=== PATIENT | female | born 1940 ===

== ENCOUNTER 2017-07-13 15:19 | Inpatient (IN) | payer OTHER ==
[2017-07-13 20:48] VITALS: BMI 28.1
--- NOTE | 2017-07-13 21:41 | CP.PCM.HP ---
History of Present Illness - History of Present Illness History of Present Illness: PMD: Not on staff Chief complaint: Weakness/Unsteady gait The patient was seen and examined in the TCU HPI: This is a 76 years old female with hx of CHF, HTN, DM II. CAD s/p CABG and PPM transferred from the [facility] ([facility] to the [facility] for continued treatment and physical therapy. She was admitted to the [facility] ([facility]) on 07/10/17 after a fall in the street with trauma and pain to the whole back and legs and found to be Hypokalemic. CT of the head, neck, thoracic and lumbar spine all negative for fracture.At [facility] she complained of pain to the back and lower extremities with weakness and unstable gait and prone to fall without assistance. PMH: Back problems; CHF; HTN; HLD; Pneumonia; CAD; DM II PSH: Appendectomy; cholecystectomy; Permanent Pacemaker placement; CABG; Mitral/ Aortic valve replacement; Cataract removal right eye C Section X1 SH: No illegal drug use; No ETOH; never smoked; Live with family FH: State: no known family hx Allergies: ASA; PCN; EGG; Iodine; latex; Medication: reviewed Present on Admission - Present on Admission Any Indicators Present on Admission: No History of DVT/PE: No History of Uncontrolled Diabetes: No Urinary Catheter: No Decubitus Ulcer Present: No Review of Systems - Constitutional Constitutional: Headache, Weakness. absent: Anorexia, Chills, Fatigue, Fever - EENT Eyes: Requires Corrective Lenses. absent: Diplopia, Floaters, Loss of Peripheral Vision Ears: absent: Decreased Hearing, Ear Discharge, Ear Pain, Tinnitus Nose/Mouth/Throat: Epistaxis. absent: Nasal Congestion, Sinus Pressure - Cardiovascular Cardiovascular: absent: Chest Pain, Dyspnea, Leg Edema - Respiratory Respiratory: absent: Cough, Dyspnea, Wheezing - Gastrointestinal Gastrointestinal: Constipation. absent: Diarrhea, Nausea, Vomiting - Genitourinary Genitourinary: Urinary Frequency. absent: Dysuria, Flank Pain, Hematuria - Musculoskeletal Musculoskeletal: Back Pain, Muscle Weakness Additional comments: lower extremity weakness - Integumentary Integumentary: Pruritus, Rash. absent: Skin Pain, Skin Ulcer, Sores, Striae, Swelling - Neurological Neurological: Weakness. absent: Confusion, Dizziness, Headaches - Psychiatric Psychiatric: absent: Anxiety, Depression, Panic Attacks - Endocrine Endocrine: absent: Palpitations, Polydipsia, Polyphagia, Polyuria - Hematologic/Lymphatic Hematologic: absent: Easy Bleeding, Easy Bruising Past Patient History - Infectious Disease Hx of Infectious Diseases: None - Tetanus Immunizations Tetanus Immunization: Unknown - Past Medical History & Family History Past Medical History?: Yes - Past Social History Smoking Status: Never Smoked Chewing Tobacco Use: No Cigar Use: No Alcohol: None Drugs: Denies Home Situation {Lives}: With Family - CARDIAC Hx Hypercholesterolemia: Yes Hx Hypertension: Yes - PULMONARY Hx Pneumonia: Yes - NEUROLOGICAL Hx Neurological Disorder: No - HEENT Hx HEENT Problems: Yes Hx Cataracts: Yes (rt eye Sx 7yrs ago) - RENAL Hx Chronic Kidney Disease: No - ENDOCRINE/METABOLIC Hx Diabetes Mellitus Type 2: No - HEMATOLOGICAL/ONCOLOGICAL Hx Blood Disorders: No Hx Blood Transfusions: Yes Hx Blood Transfusion Reaction: No - INTEGUMENTARY Hx Dermatological Problems: No - MUSCULOSKELETAL/RHEUMATOLOGICAL Hx Falls: Yes - GASTROINTESTINAL Hx Gastrointestinal Disorders: Yes Hx Nausea: Yes Hx Vomiting: Yes Other/Comment: Hx poor appetite had PEG tube which was removed - GENITOURINARY/GYNECOLOGICAL Hx Genitourinary Disorders: No - PSYCHIATRIC Hx Psychophysiologic Disorder: No Hx Substance Use: No - SURGICAL HISTORY Hx Appendectomy: Yes (3 months ago) Hx Cholecystectomy: Yes - ANESTHESIA Hx Anesthesia: Yes Hx Anesthesia Reactions: Yes (DOES NOT TAKE EFFECT RIGHT AWAY) Hx Malignant Hyperthermia: No Meds Allergies/Adverse Reactions: Allergies Allergy/AdvReac Type Severity Reaction Status Date / Time aspirin Allergy SHORTNESS Verified 07/08/17 11:47 OF BREATH EGG Allergy SHORTNESS Verified 07/08/17 11:47 OF BREATH iodine Allergy SHORTNESS Verified 07/08/17 11:47 OF BREATH latex Allergy SHORTNESS Verified 07/08/17 11:47 OF BREATH Penicillins Allergy SHORTNESS Verified 07/08/17 11:47 OF BREATH Physical Exam - Constitutional Appears: No Acute Distress - Head Exam Head Exam: ATRAUMATIC, NORMAL INSPECTION, NORMOCEPHALIC - Eye Exam Eye Exam: EOMI, Normal appearance Pupil Exam: NORMAL ACCOMODATION, PERRL - ENT Exam ENT Exam: Mucous Membranes Moist, Normal Exam. absent: Normal External Ear Exam , Normal Oropharynx - Neck Exam Neck exam: Positive for: Full Rom, Normal Inspection. Negative for: Lymphadenopathy, Tenderness - Respiratory Exam Respiratory Exam: Clear to Auscultation Bilateral. absent: Rales, Rhonchi, Wheezes - Cardiovascular Exam Cardiovascular Exam: RRR, +S1, +S2. absent: Gallop Additional comments: III/ Systolic murmur at the base - GI/Abdominal Exam GI & Abdominal Exam: Normal Bowel Sounds, Soft. absent: Mass, Organomegaly, Tenderness - Rectal Exam Rectal Exam: Deferred - Extremities Exam Extremities exam: Positive for: normal inspection. Negative for: pedal edema Additional comments: Tenderness at both lower extremities on flexion - Back Exam Back exam: NORMAL INSPECTION. absent: CVA tenderness (L), CVA tenderness (R) - Neurological Exam Neurological exam: Alert, CN II-XII Intact, Oriented x3, Reflexes Normal - Psychiatric Exam Psychiatric exam: Normal Affect, Normal Mood - Skin Skin Exam: Dry, Intact, Normal Color, Rash, Warm Additional comments: Pruritic rash at both upper extremities and the chest Results - Labs Labs: PND Assessment & Plan - Assessment and Plan (Free Text) Assessment: #. Unsteady Gait #. Back pain #. Chronic CHF #. CAD #. DM II #. Hypokalemia resolved Plan: 76 years old female with hx of CHF, HTN, DM II. CAD s/p CABG and PPM transferred from the [facility] ([facility] to the [facility] for continued treatment and physical therapy. She was admitted to the [facility] ([facility] on 07/10/17 after a fall in the street with trauma and pain to the whole back and legs and found to be Hypokalemic. #. Unsteady Gait - Consult Belling Machine Operator Dr Mcallister - Physical therapy - occupational therapy - follow Electrolytes/renal labs #. Back pain - PT - Pain management #. Chronic CHF - Coreg/Lasix #. CAD - Crestor/ Plavix #. DM II - Glucophage - Regular Insulin sliding scale according to accucheck #. Hypokalemia resolved - follow electrolytes #. DVT prophylaxis with lovenox #. Code Status: Full - Date & Time Date: 07/13/17 Time: 21:41
[2017-07-13] MEDS ORDERED: Patient's Own Med (Rosuvastatin Calcium [Crestor] 10 MG) PO SCH (22:00)
[2017-07-13 22:04] VITALS: RESP 20
[2017-07-14] MEDS: Insulin Regular 100 units/ml SC SCH ×4 (07:07→23:00)
[2017-07-14 07:33] LABS: BASO # 0.1 K/uL (0.0-0.2); EOS # 0.3 K/uL (0.0-0.7); HEMOGLOBIN 10.8 g/dL (12.0-16.0); LYMPH # 2.1 K/uL (1.0-4.3); LYMPH % 23.7 % (20.0-40.0); MEAN CELL VOLUME 85.5 fl (81.0-99.0); MEAN CORPUSCULAR HEMOGLOBIN 28.8 pg (27.0-31.0); MEAN CORPUSCULAR HGB CONC 33.7 g/dL (33.0-37.0); MEAN PLATELET VOLUME 8.7 fl (7.2-11.7); MONO # 0.7 K/uL (0.0-0.8); MONO % 7.4 % (0.0-10.0); NEUT # 5.8 K/uL (1.8-7.0); NEUT % 64.9 % (50.0-75.0); NRBC % 0.1 % (0.0-0.0); RBC 3.75 Mil/uL (3.80-5.20); RED CELL DISTRIBUTION WIDTH 14.4 % (11.5-14.5); WHITE BLOOD COUNT 8.9 K/uL (4.8-10.8)
[2017-07-14 07:49] LABS: ALB/GLOB RATIO 1.1 (1.0-2.1); ALBUMIN 3.7 g/dL (3.5-5.0); ALT/SGPT 39 U/L (9-52); AST/SGOT 28 U/L (14-36); BLOOD UREA NITROGEN 17 mg/dl (7-17); CALCIUM 9.8 mg/dL (8.4-10.2); GFR AFRICAN-AMERICAN > 60; GFR NON-AFRICAN AMERICAN > 60
[2017-07-14 08:08] LABS: PROTHROMBIN TIME 11.6 Seconds (9.8-13.1)
[2017-07-14 08:09] LABS: PARTIAL THROMBOPLASTIN TIME 31.8 Seconds (25.6-37.1)
--- NOTE | 2017-07-14 08:59 | RAD ---
HISTORY: r/o Infiltrate COMPARISON: No prior. FINDINGS: LUNGS: No active pulmonary disease. PLEURA: No significant pleural effusion identified, no pneumothorax apparent. CARDIOVASCULAR: CABG. Permanent pacemaker. No congestive change. OSSEOUS STRUCTURES: No significant abnormalities. VISUALIZED UPPER ABDOMEN: Normal. OTHER FINDINGS: None. IMPRESSION: No active disease.
[2017-07-14] MEDS ORDERED: Patient's Own Med (Multivitamins [Hexavitamin] 1 TAB) PO SCH (09:00)
[2017-07-14] MEDS: Multivitamin With Minerals Tab PO SCH (09:02)
[2017-07-14] MEDS: Enoxaparin 40 mg Syringe SC SCH (09:02)
[2017-07-14] MEDS: Lidocaine 5% Patch TD SCH (09:03)
--- NOTE | 2017-07-14 19:21 | CP.PCM.CON ---
History of Present Illness - History of Present Illness History of Present Illness: progress note dictated POSSIBLE SEIZURE AND FALL EEG T4 PHASE REVERSAL Rx LAMICTAL 25MG BID AND TITRATE WEEKLY IF INDICATED PT FOLLOW UP AN OP Past Patient History - Infectious Disease Hx of Infectious Diseases: None - Tetanus Immunizations Tetanus Immunization: Unknown - Past Medical History & Family History Past Medical History?: Yes - Past Social History Smoking Status: Never Smoked Chewing Tobacco Use: No Cigar Use: No Alcohol: None Drugs: Denies Home Situation {Lives}: With Family - CARDIAC Hx Cardiac Disorders: Yes Hx Congestive Heart Failure: Yes Hx Hypertension: Yes - PULMONARY Hx Pneumonia: Yes - NEUROLOGICAL Hx Neurological Disorder: No - HEENT Hx HEENT Problems: Yes Hx Cataracts: Yes (rt eye Sx 7yrs ago) - RENAL Hx Chronic Kidney Disease: No - ENDOCRINE/METABOLIC Hx Diabetes Mellitus Type 2: Yes - HEMATOLOGICAL/ONCOLOGICAL Hx Blood Disorders: No Hx AIDS: No Hx Blood Transfusions: Yes Hx Blood Transfusion Reaction: No Hx Human Immunodeficiency Virus (HIV): No - INTEGUMENTARY Hx Dermatological Problems: No - MUSCULOSKELETAL/RHEUMATOLOGICAL Hx Falls: Yes - GASTROINTESTINAL Hx Gastrointestinal Disorders: Yes Hx Nausea: Yes Hx Vomiting: Yes Other/Comment: Hx poor appetite had PEG tube which was removed - GENITOURINARY/GYNECOLOGICAL Hx Genitourinary Disorders: No - PSYCHIATRIC Hx Psychophysiologic Disorder: No Hx Substance Use: No - SURGICAL HISTORY Hx Appendectomy: Yes (3 months ago) Hx Cholecystectomy: Yes - ANESTHESIA Hx Anesthesia: Yes Hx Anesthesia Reactions: Yes (DOES NOT TAKE EFFECT RIGHT AWAY) Hx Malignant Hyperthermia: No Meds Allergies/Adverse Reactions: Allergies Allergy/AdvReac Type Severity Reaction Status Date / Time aspirin Allergy SHORTNESS Verified 07/08/17 11:47 OF BREATH EGG Allergy SHORTNESS Verified 07/08/17 11:47 OF BREATH iodine Allergy SHORTNESS Verified 07/08/17 11:47 OF BREATH latex Allergy SHORTNESS Verified 07/08/17 11:47 OF BREATH Penicillins Allergy SHORTNESS Verified 07/08/17 11:47 OF BREATH - Medications Medications: Current Medications Acetaminophen (Tylenol 325mg Tab) 650 mg PO Q4 PRN PRN Reason: Pain, moderate (4-7) Last Admin: 07/14/17 13:28 Dose: 650 mg Atorvastatin Calcium (Lipitor) 20 mg PO HS [facility] Last Admin: 07/13/17 22:51 Dose: 20 mg Carvedilol (Coreg) 12.5 mg PO BID [facility] Last Admin: 07/14/17 17:31 Dose: Not Given Clopidogrel Bisulfate (Plavix) 75 mg PO DAILY [facility] Last Admin: 07/14/17 09:02 Dose: 75 mg Diphenhydramine HCl (Benadryl) 25 mg PO Q6 PRN PRN Reason: Itching / Pruritus Last Admin: 07/13/17 22:51 Dose: 25 mg Enoxaparin Sodium (Lovenox) 40 mg SC DAILY [facility] PRN Reason: Protocol Last Admin: 07/14/17 09:02 Dose: 40 mg Famotidine (Pepcid) 20 mg PO BID [facility] Last Admin: 07/14/17 17:31 Dose: 20 mg Furosemide (Lasix) 20 mg PO DAILY [facility] Last Admin: 07/14/17 09:04 Dose: Not Given Insulin Human Regular (Humulin R) 0 units SC ACHS [facility] PRN Reason: Protocol Last Admin: 07/14/17 17:30 Dose: Not Given Lamotrigine (Lamictal) 25 mg PO BID [facility] Last Admin: 07/14/17 17:35 Dose: Not Given Lidocaine (Lidoderm) 1 ea TD DAILY [facility] Last Admin: 07/14/17 09:03 Dose: 1 ea Metformin HCl (Glucophage) 500 mg PO BID [facility] Last Admin: 07/14/17 17:31 Dose: 500 mg Multivitamins/Minerals (Therapeutic-M Tab) 1 tab PO DAILY [facility] Last Admin: 07/14/17 09:02 Dose: 1 tab Results - Vital Signs Recent Vital Signs: Last Vital Signs Temp 98.2 F 07/14/17 16:15 Pulse 68 07/14/17 16:15 Resp 20 07/14/17 16:15 BP 108/58 L 07/14/17 16:15 Pulse Ox 96 07/14/17 16:15 - Labs Result Diagrams: 07/14/17 06:55 07/14/17 06:55 Labs: Laboratory Results - last 24 hr 07/13/17 07/14/17 07/14/17 23:30 05:49 06:55 WBC 8.9 RBC 3.75 L Hgb 10.8 L Hct 32.0 L MCV 85.5 MCH 28.8 MCHC 33.7 RDW 14.4 Plt Count 210 MPV 8.7 Neut % (Auto) 64.9 Lymph % (Auto) 23.7 Leslie % (Auto) 7.4 Eos % (Auto) 3.0 Baso % (Auto) 1.0 Neut # (Auto) 5.8 Lymph # (Auto) 2.1 Leslie # (Auto) 0.7 Eos # (Auto) 0.3 Baso # (Auto) 0.1 PT INR APTT Sodium Potassium Chloride Carbon Dioxide Anion Gap BUN Creatinine Est GFR ( Amer) Est GFR (Non-Af Amer) POC Glucose (mg/dL) 148 H 106 Random Glucose Calcium Total Bilirubin AST ALT Alkaline Phosphatase Total Protein Albumin Globulin Albumin/Globulin Ratio 07/14/17 07/14/17 07/14/17 06:55 06:55 11:15 WBC RBC Hgb Hct MCV MCH MCHC RDW Plt Count MPV Neut % (Auto) Lymph % (Auto) Leslie % (Auto) Eos % (Auto) Baso % (Auto) Neut # (Auto) Lymph # (Auto) Leslie # (Auto) Eos # (Auto) Baso # (Auto) PT 11.6 INR 1.0 APTT 31.8 Sodium 141 Potassium 4.3 Chloride 101 Carbon Dioxide 33 H Anion Gap 11 BUN 17 Creatinine 0.9 Est GFR ( Amer) > 60 Est GFR (Non-Af Amer) > 60 POC Glucose (mg/dL) 103 Random Glucose 98 Calcium 9.8 Total Bilirubin 0.4 AST 28 ALT 39 Alkaline Phosphatase 53 Total Protein 7.1 Albumin 3.7 Globulin 3.4 Albumin/Globulin Ratio 1.1 07/14/17 15:44 WBC RBC Hgb Hct MCV MCH MCHC RDW Plt Count MPV Neut % (Auto) Lymph % (Auto) Leslie % (Auto) Eos % (Auto) Baso % (Auto) Neut # (Auto) Lymph # (Auto) Leslie # (Auto) Eos # (Auto) Baso # (Auto) PT INR APTT Sodium Potassium Chloride Carbon Dioxide Anion Gap BUN Creatinine Est GFR ( Amer) Est GFR (Non-Af Amer) POC Glucose (mg/dL) 128 H Random Glucose Calcium Total Bilirubin AST ALT Alkaline Phosphatase Total Protein Albumin Globulin Albumin/Globulin Ratio
--- NOTE | 2017-07-14 20:28 | PN ---
DATE: 07/14/2017 NEUROLOGICAL PROBLEM: Status post fall with abnormal EEG. PHYSICAL EXAMINATION: VITAL SIGNS: Blood pressure 108/58, mean arterial pressure of 74, respiratory rate 16, and temperature afebrile. The patient was seen and evaluated at the time of admission in [facility] The patient's fall has not been identified or reason was not discovered because there was no witness. Following the fall, the patient did have extensive workup including CAT scan of neck, thoracic spine and lumbosacral spine, which showed a spondylitic changes and degenerative disease. The patient does not have any myelopathy as per the radiological exam. The patient was complaining of lower extremity numbness and pain. The patient was improved with conservative management. The patient was scheduled to have electroencephalogram to rule out any abnormal activities that could explain her fall. EEG was reviewed by me showed phase reversal at right temporal region with short waves consistent with epileptiform focus. However, CT of the head did not pick and shovel man any finding except small vessel disease. Her examination at present, the patient's cranial nerve examination is unchanged and fully intact. Upper extremity is normal and lower extremity is very limited exam. She is able to lift her both lower extremities against the gravity. Deep tendon reflexes are trace, both lower extremities absent, and plantars are downgoing. 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 CONCLUSION: Ms. Elizabeth Tong has been presenting with status post fall probably seizures as per the diagnostic studies as well as from the history. 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 RECOMMENDATIONS: 1. The patient can be started on lamotrigine 25 mg twice a day to control the seizures and the dose can be increased depending on her clinical manifestation and subjective symptoms in near future. 2. Physical therapy and DVT prophylaxis. Continue the present management as she has been getting it. Isaac Theodore MD [id number]
[2017-07-15] MEDS: Insulin Regular 100 units/ml SC SCH ×4 (07:10→21:06)
[2017-07-15] MEDS: Lidocaine 5% Patch TD SCH (08:20)
[2017-07-15] MEDS: Enoxaparin 40 mg Syringe SC SCH (08:20)
[2017-07-15] MEDS: Multivitamin With Minerals Tab PO SCH (08:22)
[2017-07-15] MEDS ORDERED: Alum-Mag Hydrox-Simethicone Susp (30 mL) PO PRN (12:25)
[2017-07-16] MEDS: Insulin Regular 100 units/ml SC SCH ×4 (06:39→21:10)
[2017-07-16] MEDS: Enoxaparin 40 mg Syringe SC SCH (08:20)
[2017-07-16] MEDS: Multivitamin With Minerals Tab PO SCH (08:20)
[2017-07-16] MEDS: Lidocaine 5% Patch TD SCH (08:20)
--- NOTE | 2017-07-16 11:35 | CP.PCM.CON ---
History of Present Illness - History of Present Illness History of Present Illness: 76 year old female admitted to [facility] with deconditioning, CHF, DM, gait difficulty , Cabg and permanent pacemaker, now for physical, occupational therapy program Review of Systems - Musculoskeletal Musculoskeletal: Abnormal Gait, Muscle Weakness Past Patient History - Infectious Disease Hx of Infectious Diseases: None - Tetanus Immunizations Tetanus Immunization: Unknown - Past Medical History & Family History Past Medical History?: Yes - Past Social History Smoking Status: Never Smoked Chewing Tobacco Use: No Cigar Use: No Alcohol: None Drugs: Denies Home Situation {Lives}: With Family - CARDIAC Hx Cardiac Disorders: Yes Hx Congestive Heart Failure: Yes Hx Hypertension: Yes - PULMONARY Hx Pneumonia: Yes - NEUROLOGICAL Hx Neurological Disorder: No - HEENT Hx HEENT Problems: Yes Hx Cataracts: Yes (rt eye Sx 7yrs ago) - RENAL Hx Chronic Kidney Disease: No - ENDOCRINE/METABOLIC Hx Diabetes Mellitus Type 2: Yes - HEMATOLOGICAL/ONCOLOGICAL Hx Blood Disorders: No Hx AIDS: No Hx Blood Transfusions: Yes Hx Blood Transfusion Reaction: No Hx Human Immunodeficiency Virus (HIV): No - INTEGUMENTARY Hx Dermatological Problems: No - MUSCULOSKELETAL/RHEUMATOLOGICAL Hx Falls: Yes - GASTROINTESTINAL Hx Gastrointestinal Disorders: Yes Hx Nausea: Yes Hx Vomiting: Yes Other/Comment: Hx poor appetite had PEG tube which was removed - GENITOURINARY/GYNECOLOGICAL Hx Genitourinary Disorders: No - PSYCHIATRIC Hx Psychophysiologic Disorder: No Hx Substance Use: No - SURGICAL HISTORY Hx Appendectomy: Yes (3 months ago) Hx Cholecystectomy: Yes - ANESTHESIA Hx Anesthesia: Yes Hx Anesthesia Reactions: Yes (DOES NOT TAKE EFFECT RIGHT AWAY) Hx Malignant Hyperthermia: No Meds Allergies/Adverse Reactions: Allergies Allergy/AdvReac Type Severity Reaction Status Date / Time aspirin Allergy SHORTNESS Verified 07/08/17 11:47 OF BREATH EGG Allergy SHORTNESS Verified 07/08/17 11:47 OF BREATH iodine Allergy SHORTNESS Verified 07/08/17 11:47 OF BREATH latex Allergy SHORTNESS Verified 07/08/17 11:47 OF BREATH Penicillins Allergy SHORTNESS Verified 07/08/17 11:47 OF BREATH - Medications Medications: Current Medications Acetaminophen (Tylenol 325mg Tab) 650 mg PO Q4 PRN PRN Reason: Pain, moderate (4-7) Last Admin: 07/15/17 14:45 Dose: 650 mg Al Hydrox/Mg Hydrox/Simethicone (Maalox Plus 30 Ml) 30 ml PO Q6 PRN PRN Reason: Indigestion / Heartburn Atorvastatin Calcium (Lipitor) 20 mg PO HS [facility] Last Admin: 07/15/17 21:06 Dose: 20 mg Carvedilol (Coreg) 12.5 mg PO BID [facility] Last Admin: 07/16/17 08:22 Dose: 12.5 mg Clopidogrel Bisulfate (Plavix) 75 mg PO DAILY [facility] Last Admin: 07/16/17 08:20 Dose: 75 mg Diphenhydramine HCl (Benadryl) 25 mg PO Q6 PRN PRN Reason: Itching / Pruritus Last Admin: 07/13/17 22:51 Dose: 25 mg Enoxaparin Sodium (Lovenox) 40 mg SC DAILY [facility] PRN Reason: Protocol Last Admin: 07/16/17 08:20 Dose: 40 mg Famotidine (Pepcid) 20 mg PO BID [facility] Last Admin: 07/16/17 08:20 Dose: 20 mg Furosemide (Lasix) 20 mg PO DAILY [facility] Last Admin: 07/16/17 08:22 Dose: 20 mg Insulin Human Regular (Humulin R) 0 units SC [facility] PRN Reason: Protocol Last Admin: 07/16/17 06:39 Dose: Not Given Lactulose (Enulose) 20 gm PO DAILY PRN PRN Reason: Constipation Last Admin: 07/15/17 21:36 Dose: 20 gm Lamotrigine (Lamictal) 25 mg PO BID [facility] Last Admin: 07/16/17 08:20 Dose: 25 mg Lidocaine (Lidoderm) 1 ea TD DAILY [facility] Last Admin: 07/16/17 08:20 Dose: 1 ea Metformin HCl (Glucophage) 500 mg PO BID [facility] Last Admin: 07/16/17 08:20 Dose: 500 mg Multivitamins/Minerals (Therapeutic-M Tab) 1 tab PO DAILY [facility] Last Admin: 07/16/17 08:20 Dose: 1 tab Physical Exam - Head Exam Head Exam: ATRAUMATIC, NORMAL INSPECTION, NORMOCEPHALIC - Eye Exam Eye Exam: EOMI, Normal appearance, PERRL Pupil Exam: NORMAL ACCOMODATION, PERRL - ENT Exam ENT Exam: Mucous Membranes Moist, Normal Exam - Neck Exam Neck exam: Positive for: Normal Inspection - Respiratory Exam Respiratory Exam: Clear to Auscultation Bilateral, NORMAL BREATHING PATTERN - Cardiovascular Exam Cardiovascular Exam: REGULAR RHYTHM - GI/Abdominal Exam GI & Abdominal Exam: Normal Bowel Sounds, Soft. absent: Tenderness - Rectal Exam Rectal Exam: NORMAL INSPECTION - Exam External exam: NORMAL EXTERNAL EXAM - Extremities Exam Extremities exam: Positive for: normal inspection Additional comments: problems with balance and coordination - Back Exam Back exam: NORMAL INSPECTION - Neurological Exam Neurological exam: Alert, CN II-XII Intact - Skin Skin Exam: Dry, Normal Color Results - Vital Signs Recent Vital Signs: Last Vital Signs Temp 97.3 F L 07/16/17 08:28 Pulse 60 07/16/17 08:28 Resp 20 07/16/17 08:28 BP 111/59 L 07/16/17 08:28 Pulse Ox 98 07/16/17 08:28 - Labs Result Diagrams: 07/14/17 06:55 07/14/17 06:55 Labs: Laboratory Results - last 24 hr 07/15/17 07/15/17 07/15/17 11:24 16:11 20:49 POC Glucose (mg/dL) 98 87 110 Assessment & Plan (1) Acute appendicitis without peritonitis Status: Acute (2) Adnexal cyst Status: Acute (3) Adnexal mass Status: Acute (4) Chest discomfort Status: Acute Priority: Low (5) Congestive heart failure Status: Acute (6) Cystitis Status: Acute (7) Gait difficulty Assessment and Plan: patiient with problems of gait diffculty, status post lumber strain, with history of CHF, DM, CABG, paln for physical, occupational therapy for range of motion, strengthening, transferss and gait training. Thank you for the rehab referral. Status: Acute
[2017-07-17] MEDS: Insulin Regular 100 units/ml SC SCH ×4 (06:38→21:09)
[2017-07-17] MEDS: Multivitamin With Minerals Tab PO SCH (08:13)
[2017-07-17] MEDS: Enoxaparin 40 mg Syringe SC SCH (08:14)
[2017-07-17] MEDS: Lidocaine 5% Patch TD SCH (08:14)
--- NOTE | 2017-07-17 18:24 | CP.PCM.PN ---
Subjective - Date & Time of Evaluation Date of Evaluation: 07/15/17 Time of Evaluation: 12:00 - Subjective Subjective: patinet with weakness and some knee discomfort Objective - Vital Signs/Intake and Output Vital Signs (last 24 hours): Temp Pulse Resp BP Pulse Ox 98.1 F 64 20 110/56 L 99 07/17/17 16:00 07/17/17 16:29 07/17/17 16:00 07/17/17 16:29 07/17/17 16:00 - Medications Medications: Current Medications Acetaminophen (Tylenol 325mg Tab) 650 mg PO Q4 PRN PRN Reason: Pain, moderate (4-7) Last Admin: 07/17/17 10:02 Dose: 650 mg Al Hydrox/Mg Hydrox/Simethicone (Maalox Plus 30 Ml) 30 ml PO Q6 PRN PRN Reason: Indigestion / Heartburn Last Admin: 07/16/17 21:06 Dose: 30 ml Atorvastatin Calcium (Lipitor) 20 mg PO HS [facility] Last Admin: 07/16/17 21:06 Dose: 20 mg Carvedilol (Coreg) 12.5 mg PO BID [facility] Last Admin: 07/17/17 16:29 Dose: 12.5 mg Clopidogrel Bisulfate (Plavix) 75 mg PO DAILY [facility] Last Admin: 07/17/17 08:13 Dose: 75 mg Diphenhydramine HCl (Benadryl) 25 mg PO Q6 PRN PRN Reason: Itching / Pruritus Last Admin: 07/13/17 22:51 Dose: 25 mg Famotidine (Pepcid) 20 mg PO BID [facility] Last Admin: 07/17/17 16:29 Dose: 20 mg Furosemide (Lasix) 20 mg PO DAILY [facility] Last Admin: 07/17/17 08:13 Dose: 20 mg Insulin Human Regular (Humulin R) 0 units SC [facility] PRN Reason: Protocol Last Admin: 07/17/17 16:26 Dose: Not Given Lactulose (Enulose) 20 gm PO DAILY PRN PRN Reason: Constipation Last Admin: 07/16/17 21:07 Dose: 20 gm Lamotrigine (Lamictal) 25 mg PO BID [facility] Last Admin: 07/17/17 16:29 Dose: 25 mg Lidocaine (Lidoderm) 1 ea TD DAILY [facility] Last Admin: 07/17/17 08:14 Dose: 1 ea Metformin HCl (Glucophage) 500 mg PO BID [facility] Last Admin: 07/17/17 16:29 Dose: 500 mg Multivitamins/Minerals (Therapeutic-M Tab) 1 tab PO DAILY [facility] Last Admin: 07/17/17 08:13 Dose: 1 tab - Labs Labs: 07/14/17 06:55 07/14/17 06:55 PT 11.6 Seconds (9.8-13.1) 07/14/17 06:55 INR 1.0 (0.9-1.2) 07/14/17 06:55 APTT 31.8 Seconds (25.6-37.1) 07/14/17 06:55 - Head Exam Head Exam: ATRAUMATIC, NORMAL INSPECTION, NORMOCEPHALIC - Eye Exam Eye Exam: EOMI, Normal appearance, PERRL - ENT Exam ENT Exam: Mucous Membranes Moist, Normal Exam - Neck Exam Neck Exam: Full ROM, Normal Inspection. absent: Lymphadenopathy - Respiratory Exam Respiratory Exam: Clear to Ausculation Bilateral, NORMAL BREATHING PATTERN - Cardiovascular Exam Cardiovascular Exam: REGULAR RHYTHM, +S1, +S2. absent: Murmur - GI/Abdominal Exam GI & Abdominal Exam: Soft, Normal Bowel Sounds. absent: Tenderness - Rectal Exam Rectal Exam: NORMAL INSPECTION - Exam External exam: NORMAL EXTERNAL EXAM - Extremities Exam Extremities Exam: Full ROM, Normal Capillary Refill, Normal Inspection. absent : Joint Swelling, Pedal Edema - Back Exam Back Exam: NORMAL INSPECTION - Neurological Exam Neurological Exam: Alert, Awake Neuro motor strength exam: Left Upper Extremity: 4, Right Upper Extremity: 4, Left Lower Extremity: 3, Right Lower Extremity: 3 - Psychiatric Exam Psychiatric exam: Normal Affect, Normal Mood - Skin Skin Exam: Normal Color Assessment and Plan (1) Acute appendicitis without peritonitis Status: Acute (2) Adnexal cyst Status: Acute (3) Adnexal mass Status: Acute (4) Chest discomfort Status: Acute (5) Congestive heart failure Status: Acute (6) Cystitis Status: Acute (7) Gait difficulty Assessment & Plan: plan for physical, occupational, therapy program Status: Acute
--- NOTE | 2017-07-17 18:27 | CP.PCM.PN ---
Subjective - Date & Time of Evaluation Date of Evaluation: 07/17/17 Time of Evaluation: 14:00 - Subjective Subjective: patinet with generalized weakness Objective - Vital Signs/Intake and Output Vital Signs (last 24 hours): Temp Pulse Resp BP Pulse Ox 98.1 F 64 20 110/56 L 99 07/17/17 16:00 07/17/17 16:29 07/17/17 16:00 07/17/17 16:29 07/17/17 16:00 - Medications Medications: Current Medications Acetaminophen (Tylenol 325mg Tab) 650 mg PO Q4 PRN PRN Reason: Pain, moderate (4-7) Last Admin: 07/17/17 10:02 Dose: 650 mg Al Hydrox/Mg Hydrox/Simethicone (Maalox Plus 30 Ml) 30 ml PO Q6 PRN PRN Reason: Indigestion / Heartburn Last Admin: 07/16/17 21:06 Dose: 30 ml Atorvastatin Calcium (Lipitor) 20 mg PO HS [facility] Last Admin: 07/16/17 21:06 Dose: 20 mg Carvedilol (Coreg) 12.5 mg PO BID [facility] Last Admin: 07/17/17 16:29 Dose: 12.5 mg Clopidogrel Bisulfate (Plavix) 75 mg PO DAILY [facility] Last Admin: 07/17/17 08:13 Dose: 75 mg Diphenhydramine HCl (Benadryl) 25 mg PO Q6 PRN PRN Reason: Itching / Pruritus Last Admin: 07/13/17 22:51 Dose: 25 mg Famotidine (Pepcid) 20 mg PO BID [facility] Last Admin: 07/17/17 16:29 Dose: 20 mg Furosemide (Lasix) 20 mg PO DAILY [facility] Last Admin: 07/17/17 08:13 Dose: 20 mg Insulin Human Regular (Humulin R) [address] [facility] PRN Reason: Protocol Last Admin: 07/17/17 16:26 Dose: Not Given Lactulose (Enulose) 20 gm PO DAILY PRN PRN Reason: Constipation Last Admin: 07/16/17 21:07 Dose: 20 gm Lamotrigine (Lamictal) 25 mg PO BID [facility] Last Admin: 07/17/17 16:29 Dose: 25 mg Lidocaine (Lidoderm) 1 ea TD DAILY [facility] Last Admin: 07/17/17 08:14 Dose: 1 ea Metformin HCl (Glucophage) 500 mg PO BID [facility] Last Admin: 07/17/17 16:29 Dose: 500 mg Multivitamins/Minerals (Therapeutic-M Tab) 1 tab PO DAILY [facility] Last Admin: 07/17/17 08:13 Dose: 1 tab - Labs Labs: 07/14/17 06:55 07/14/17 06:55 PT 11.6 Seconds (9.8-13.1) 07/14/17 06:55 INR 1.0 (0.9-1.2) 07/14/17 06:55 APTT 31.8 Seconds (25.6-37.1) 07/14/17 06:55 - Head Exam Head Exam: ATRAUMATIC, NORMAL INSPECTION, NORMOCEPHALIC - Eye Exam Eye Exam: EOMI, Normal appearance, PERRL - ENT Exam ENT Exam: Mucous Membranes Moist, Normal Exam - Respiratory Exam Respiratory Exam: Clear to Ausculation Bilateral, NORMAL BREATHING PATTERN - Cardiovascular Exam Cardiovascular Exam: REGULAR RHYTHM, +S1, +S2. absent: Murmur - GI/Abdominal Exam GI & Abdominal Exam: Soft, Normal Bowel Sounds. absent: Tenderness - Rectal Exam Rectal Exam: NORMAL INSPECTION - Exam External exam: NORMAL EXTERNAL EXAM - Extremities Exam Extremities Exam: Full ROM, Normal Capillary Refill - Back Exam Back Exam: NORMAL INSPECTION - Neurological Exam Neurological Exam: Alert, Awake Neuro motor strength exam: Left Upper Extremity: 3, Right Upper Extremity: 3, Left Lower Extremity: 3, Right Lower Extremity: 3 - Psychiatric Exam Psychiatric exam: Normal Affect - Skin Skin Exam: Normal Color Assessment and Plan (1) Acute appendicitis without peritonitis Status: Acute (2) Adnexal cyst Status: Acute (3) Adnexal mass Status: Acute (4) Congestive heart failure Status: Acute (5) Chest discomfort Status: Acute (6) Cystitis Status: Acute (7) Gait difficulty Assessment & Plan: continue with physical, occupational, rec therapy monitor pain and skin Status: Acute
[2017-07-18] MEDS: Insulin Regular 100 units/ml SC SCH ×4 (06:34→21:06)
[2017-07-18] MEDS: Multivitamin With Minerals Tab PO SCH (08:00)
[2017-07-18] MEDS: Lidocaine 5% Patch TD SCH (08:05)
--- NOTE | 2017-07-18 13:41 | CP.PCM.PN ---
Subjective - Date & Time of Evaluation Date of Evaluation: 07/18/17 Time of Evaluation: 17:15 - Subjective Subjective: Patient seen and examined. Complained of pain on lower back and left thigh not responding to Tylenol and Motrin. Objective - Vital Signs/Intake and Output Vital Signs (last 24 hours): Temp Pulse Resp BP Pulse Ox 97.6 F 63 20 105/53 L 100 07/18/17 07:51 07/18/17 08:03 07/18/17 07:51 07/18/17 08:07 07/18/17 07:51 - Medications Medications: Current Medications Acetaminophen (Tylenol 325mg Tab) 650 mg PO Q4 PRN PRN Reason: Pain, moderate (4-7) Last Admin: 07/18/17 12:22 Dose: 650 mg Al Hydrox/Mg Hydrox/Simethicone (Maalox Plus 30 Ml) 30 ml PO Q6 PRN PRN Reason: Indigestion / Heartburn Last Admin: 07/16/17 21:06 Dose: 30 ml Atorvastatin Calcium (Lipitor) 20 mg PO [facility] Last Admin: 07/17/17 21:03 Dose: 20 mg Carvedilol (Coreg) 12.5 mg PO BID [facility] Last Admin: 07/18/17 08:03 Dose: 12.5 mg Clopidogrel Bisulfate (Plavix) 75 mg PO DAILY [facility] Last Admin: 07/18/17 08:05 Dose: 75 mg Diphenhydramine HCl (Benadryl) 25 mg PO Q6 PRN PRN Reason: Itching / Pruritus Last Admin: 07/13/17 22:51 Dose: 25 mg Famotidine (Pepcid) 20 mg PO BID [facility] Last Admin: 07/18/17 08:03 Dose: 20 mg Furosemide (Lasix) 20 mg PO DAILY [facility] Last Admin: 07/18/17 08:07 Dose: 20 mg Ibuprofen (Motrin Tab) 400 mg PO STAT [facility] Stop: 07/18/17 13:39 Insulin Human Regular (Humulin R) 0 units SC [facility] PRN Reason: Protocol Last Admin: 07/18/17 12:23 Dose: Not Given Lactulose (Enulose) 20 gm PO DAILY PRN PRN Reason: Constipation Last Admin: 07/16/17 21:07 Dose: 20 gm Lamotrigine (Lamictal) 25 mg PO BID [facility] Last Admin: 07/18/17 08:00 Dose: 25 mg Lidocaine (Lidoderm) 1 ea TD DAILY [facility] Last Admin: 07/18/17 08:05 Dose: 1 ea Metformin HCl (Glucophage) 500 mg PO BID@0800,1630 [facility] Last Admin: 07/18/17 12:23 Dose: Not Given Multivitamins/Minerals (Therapeutic-M Tab) 1 tab PO DAILY [facility] Last Admin: 07/18/17 08:00 Dose: 1 tab - Labs Labs: 07/14/17 06:55 07/14/17 06:55 PT 11.6 Seconds (9.8-13.1) 07/14/17 06:55 INR 1.0 (0.9-1.2) 07/14/17 06:55 APTT 31.8 Seconds (25.6-37.1) 07/14/17 06:55 - Constitutional Appears: No Acute Distress - Head Exam Head Exam: ATRAUMATIC - Eye Exam Eye Exam: absent: Scleral icterus - ENT Exam ENT Exam: Mucous Membranes Moist - Neck Exam Neck Exam: absent: Meningismus - Respiratory Exam Respiratory Exam: absent: Rales, Rhonchi, Wheezes, Respiratory Distress - Cardiovascular Exam Cardiovascular Exam: REGULAR RHYTHM, +S1, +S2 - GI/Abdominal Exam GI & Abdominal Exam: Soft. absent: Tenderness - Rectal Exam Rectal Exam: Deferred - Extremities Exam Extremities Exam: absent: Calf Tenderness, Pedal Edema - Back Exam Back Exam: absent: tenderness - Neurological Exam Neurological Exam: Alert, Oriented x3 - Psychiatric Exam Psychiatric exam: Normal Affect - Skin Skin Exam: Dry, Intact Assessment and Plan - Assessment and Plan (Free Text) Assessment: 76 yo female with history of CHF, HTN, DM2, CAD and pacemaker and mitral/aortic valve replacement admitted at [facility] on 07/10/2017 after a fall. Imagings were negative for fracture. She was transferred to TCU on 07/13/2017 for therapy. 1. Low Back Pain CT scan of LS spine: no fracture but multiple level degenerative changes particularly worst at L5-S1 continue PT/OT Percocet 1 tab PO q 4hrs prn for pain 2. CHF continue Lasix 20mg PO daily 3. HTN BP stable continue Coreg 12.5mg PO BID 4. DM2 BS controlled continue Metformin 500mg PO BID 5. CAD continue Plavix, BB, statin 6. DVT prophylaxis Lovenox 40mg SC daily
[2017-07-18] MEDS: Oxycodone/Acetaminophen 5/325 mg Tab PO PRN (21:02)
[2017-07-19 06:44] LABS: HEMOGLOBIN 11.1 g/dL (12.0-16.0); MEAN CELL VOLUME 87.1 fl (81.0-99.0); MEAN CORPUSCULAR HEMOGLOBIN 28.4 pg (27.0-31.0); MEAN CORPUSCULAR HGB CONC 32.6 g/dL (33.0-37.0); RBC 3.92 Mil/uL (3.80-5.20); RED CELL DISTRIBUTION WIDTH 14.2 % (11.5-14.5); WHITE BLOOD COUNT 9.2 K/uL (4.8-10.8)
[2017-07-19] MEDS: Insulin Regular 100 units/ml SC SCH ×4 (06:57→21:08)
[2017-07-19 07:10] LABS: ALB/GLOB RATIO 1.1 (1.0-2.1); ALBUMIN 3.9 g/dL (3.5-5.0); ALT/SGPT 37 U/L (9-52); AST/SGOT 31 U/L (14-36); BLOOD UREA NITROGEN 26 mg/dl (7-17); CALCIUM 10.1 mg/dL (8.4-10.2); GFR AFRICAN-AMERICAN > 60; GFR NON-AFRICAN AMERICAN > 60
[2017-07-19] MEDS: Multivitamin With Minerals Tab PO SCH (08:03)
[2017-07-19] MEDS: Lidocaine 5% Patch TD SCH (08:05)
[2017-07-19] MEDS: Enoxaparin 40 mg Syringe SC SCH (10:42)
--- NOTE | 2017-07-19 12:45 | CP.PCM.PN ---
Subjective - Date & Time of Evaluation Date of Evaluation: 07/19/17 Time of Evaluation: 11:30 - Subjective Subjective: no acute complaints at present Objective - Vital Signs/Intake and Output Vital Signs (last 24 hours): Temp Pulse Resp BP Pulse Ox 98.1 F 62 20 106/60 96 07/19/17 09:24 07/19/17 09:24 07/19/17 09:24 07/19/17 09:24 07/19/17 09:24 - Medications Medications: Current Medications Acetaminophen (Tylenol 325mg Tab) 650 mg PO Q4 PRN PRN Reason: Pain, moderate (4-7) Last Admin: 07/18/17 12:22 Dose: 650 mg Al Hydrox/Mg Hydrox/Simethicone (Maalox Plus 30 Ml) 30 ml PO Q6 PRN PRN Reason: Indigestion / Heartburn Last Admin: 07/16/17 21:06 Dose: 30 ml Atorvastatin Calcium (Lipitor) 20 mg PO HS [facility] Last Admin: 07/18/17 21:03 Dose: 20 mg Carvedilol (Coreg) 12.5 mg PO BID [facility] Last Admin: 07/19/17 08:03 Dose: 12.5 mg Clopidogrel Bisulfate (Plavix) 75 mg PO DAILY [facility] Last Admin: 07/19/17 08:04 Dose: 75 mg Diphenhydramine HCl (Benadryl) 25 mg PO Q6 PRN PRN Reason: Itching / Pruritus Last Admin: 07/13/17 22:51 Dose: 25 mg Enoxaparin Sodium (Lovenox) 40 mg SC DAILY [facility] PRN Reason: Protocol Famotidine (Pepcid) 20 mg PO BID [facility] Last Admin: 07/19/17 08:03 Dose: 20 mg Furosemide (Lasix) 20 mg PO DAILY [facility] Last Admin: 07/19/17 08:03 Dose: 20 mg Insulin Human Regular (Humulin R) 0 units SC [facility] PRN Reason: Protocol Last Admin: 07/19/17 06:57 Dose: Not Given Lactulose (Enulose) 20 gm PO DAILY PRN PRN Reason: Constipation Last Admin: 07/16/17 21:07 Dose: 20 gm Lamotrigine (Lamictal) 25 mg PO BID [facility] Last Admin: 07/19/17 08:04 Dose: 25 mg Lidocaine (Lidoderm) 1 ea TD DAILY [facility] Last Admin: 07/19/17 08:05 Dose: 1 ea Metformin HCl (Glucophage) 500 mg PO BID@0800,1630 [facility] Last Admin: 07/19/17 08:03 Dose: 500 mg Multivitamins/Minerals (Therapeutic-M Tab) 1 tab PO DAILY [facility] Last Admin: 07/19/17 08:03 Dose: 1 tab Oxycodone/Acetaminophen (Percocet 5/325 Mg Tab) 1 tab PO Q4 PRN PRN Reason: Pain, moderate (4-7) Stop: 07/21/17 20:04 Last Admin: 07/18/17 21:02 Dose: 1 tab - Labs Labs: 07/19/17 05:50 07/19/17 05:50 PT 11.6 Seconds (9.8-13.1) 07/14/17 06:55 INR 1.0 (0.9-1.2) 07/14/17 06:55 APTT 31.8 Seconds (25.6-37.1) 07/14/17 06:55 - Head Exam Head Exam: ATRAUMATIC, NORMAL INSPECTION, NORMOCEPHALIC - Eye Exam Eye Exam: EOMI, Normal appearance, PERRL Pupil Exam: NORMAL ACCOMODATION, PERRL - ENT Exam ENT Exam: Mucous Membranes Moist, Normal Exam - Neck Exam Neck Exam: Full ROM, Normal Inspection. absent: Lymphadenopathy - Respiratory Exam Respiratory Exam: Clear to Ausculation Bilateral, NORMAL BREATHING PATTERN - Cardiovascular Exam Cardiovascular Exam: REGULAR RHYTHM, +S1, +S2. absent: Murmur - GI/Abdominal Exam GI & Abdominal Exam: Soft, Normal Bowel Sounds. absent: Tenderness - Exam External exam: NORMAL EXTERNAL EXAM - Extremities Exam Extremities Exam: Full ROM, Normal Capillary Refill, Normal Inspection. absent : Joint Swelling, Pedal Edema - Back Exam Back Exam: NORMAL INSPECTION - Neurological Exam Neurological Exam: Alert, Awake Neuro motor strength exam: Left Upper Extremity: 3, Right Upper Extremity: 3, Left Lower Extremity: 3, Right Lower Extremity: 3 - Psychiatric Exam Psychiatric exam: Normal Affect, Normal Mood - Skin Skin Exam: Dry, Intact Assessment and Plan (1) Acute appendicitis without peritonitis Status: Acute (2) Adnexal cyst Status: Acute (3) Adnexal mass Status: Acute (4) Congestive heart failure Status: Acute (5) Chest discomfort Status: Acute (6) Cystitis Status: Acute (7) Gait difficulty Assessment & Plan: plan for range of motion, strenghtening, transfers and gait training monitor pain management Status: Acute
[2017-07-19] MEDS: Oxycodone/Acetaminophen 5/325 mg Tab PO PRN ×2 (13:57→21:05)
[2017-07-20] MEDS: Insulin Regular 100 units/ml SC SCH ×4 (06:29→21:01)
[2017-07-20] MEDS: Enoxaparin 40 mg Syringe SC SCH (08:04)
[2017-07-20] MEDS: Lidocaine 5% Patch TD SCH (08:04)
[2017-07-20] MEDS: Multivitamin With Minerals Tab PO SCH (08:06)
[2017-07-20] MEDS: Oxycodone/Acetaminophen 5/325 mg Tab PO PRN (12:38)
--- NOTE | 2017-07-20 13:44 | CP.PCM.PN ---
Subjective - Date & Time of Evaluation Date of Evaluation: 07/20/17 Time of Evaluation: 10:30 - Subjective Subjective: Patient seen and examined. Still with low back pain radiating to the left thigh but admitted responding well to pain medication. Objective - Vital Signs/Intake and Output Vital Signs (last 24 hours): Temp Pulse Resp BP Pulse Ox 97.7 F 91 H 20 133/68 98 07/20/17 08:02 07/20/17 10:26 07/20/17 08:02 07/20/17 08:05 07/20/17 10:26 - Medications Medications: Current Medications Acetaminophen (Tylenol 325mg Tab) 650 mg PO Q4 PRN PRN Reason: Pain, moderate (4-7) Last Admin: 07/19/17 15:37 Dose: 650 mg Al Hydrox/Mg Hydrox/Simethicone (Maalox Plus 30 Ml) 30 ml PO Q6 PRN PRN Reason: Indigestion / Heartburn Last Admin: 07/16/17 21:06 Dose: 30 ml Atorvastatin Calcium (Lipitor) 20 mg PO [facility] Last Admin: 07/19/17 21:05 Dose: 20 mg Carvedilol (Coreg) 12.5 mg PO BID [facility] Last Admin: 07/20/17 08:05 Dose: 12.5 mg Clopidogrel Bisulfate (Plavix) 75 mg PO DAILY [facility] Last Admin: 07/20/17 08:05 Dose: 75 mg Diphenhydramine HCl (Benadryl) 25 mg PO Q6 PRN PRN Reason: Itching / Pruritus Last Admin: 07/13/17 22:51 Dose: 25 mg Enoxaparin Sodium (Lovenox) 40 mg SC DAILY [facility] PRN Reason: Protocol Last Admin: 07/20/17 08:04 Dose: 40 mg Famotidine (Pepcid) 20 mg PO BID [facility] Last Admin: 07/20/17 08:05 Dose: 20 mg Furosemide (Lasix) 20 mg PO DAILY [facility] Last Admin: 07/20/17 08:05 Dose: 20 mg Insulin Human Regular (Humulin R) 0 units SC [facility] PRN Reason: Protocol Last Admin: 07/20/17 11:19 Dose: Not Given Lactulose (Enulose) 20 gm PO DAILY PRN PRN Reason: Constipation Last Admin: 07/19/17 16:58 Dose: 20 gm Lamotrigine (Lamictal) 25 mg PO BID [facility] Last Admin: 07/20/17 08:05 Dose: 25 mg Lidocaine (Lidoderm) 1 ea TD DAILY [facility] Last Admin: 07/20/17 08:04 Dose: 1 ea Metformin HCl (Glucophage) 500 mg PO BID@0800,1630 [facility] Last Admin: 07/20/17 08:05 Dose: 500 mg Multivitamins/Minerals (Therapeutic-M Tab) 1 tab PO DAILY [facility] Last Admin: 07/20/17 08:06 Dose: 1 tab Oxycodone/Acetaminophen (Percocet 5/325 Mg Tab) 1 tab PO Q4 PRN PRN Reason: Pain, moderate (4-7) Stop: 07/21/17 20:04 Last Admin: 07/20/17 12:38 Dose: 1 tab - Labs Labs: 07/19/17 05:50 07/19/17 05:50 PT 11.6 Seconds (9.8-13.1) 07/14/17 06:55 INR 1.0 (0.9-1.2) 07/14/17 06:55 APTT 31.8 Seconds (25.6-37.1) 07/14/17 06:55 - Constitutional Appears: No Acute Distress - Head Exam Head Exam: ATRAUMATIC - Eye Exam Eye Exam: absent: Scleral icterus - ENT Exam ENT Exam: Mucous Membranes Moist - Neck Exam Neck Exam: absent: Meningismus - Respiratory Exam Respiratory Exam: absent: Rales, Rhonchi, Wheezes, Respiratory Distress - Cardiovascular Exam Cardiovascular Exam: REGULAR RHYTHM, +S1, +S2 - GI/Abdominal Exam GI & Abdominal Exam: Soft. absent: Tenderness - Rectal Exam Rectal Exam: Deferred - Neurological Exam Neurological Exam: Alert, Oriented x3 - Psychiatric Exam Psychiatric exam: Normal Affect - Skin Skin Exam: Dry, Intact Assessment and Plan - Assessment and Plan (Free Text) Assessment: 76 yo female with history of CHF, HTN, DM2, CAD and pacemaker and mitral/aortic valve replacement admitted at [facility] on 07/10/2017 after a fall. Imagings were negative for fracture. She was transferred to TCU on 07/13/2017 for therapy. 1. Low Back Pain CT scan of LS spine: no fracture but multiple level degenerative changes particularly worst at L5-S1 continue PT/OT Percocet 1 tab PO q 4hrs prn for pain 2. CHF continue Lasix 20mg PO daily 3. HTN BP stable continue Coreg 12.5mg PO BID 4. DM2 BS controlled continue Metformin 500mg PO BID 5. CAD continue Plavix, BB, statin 6. DVT prophylaxis Lovenox 40mg SC daily
[2017-07-20 16:31] VITALS: O2SAT 96
[2017-07-20 21:20] VITALS: TEMP 98.1
[2017-07-21] MEDS: Insulin Regular 100 units/ml SC SCH ×2 (06:32→11:23)
[2017-07-21] MEDS: Multivitamin With Minerals Tab PO SCH (08:01)
[2017-07-21 08:02] VITALS: BP 125/59; PULSE 61
[2017-07-21] MEDS: Lidocaine 5% Patch TD SCH (08:02)
[2017-07-21] MEDS: Enoxaparin 40 mg Syringe SC SCH (08:02)
--- NOTE | 2017-07-21 09:42 | CP.PCM.DIS ---
Provider - Provider Date of Admission: 07/13/17 20:49 Attending physician: Alejandro Mao DO Consults: Dr Mcallister Time Spent in preparation of Discharge (in minutes): 25 Diagnosis - Discharge Diagnosis (1) Low back pain Status: Acute Comment: continue Lidocaine patch. imaging showed degenerative changes in lumbar spine (2) Congestive heart failure Status: Chronic Comment: continue Lasix 20mg PO daily (3) Hypertension Status: Chronic Priority: Medium Comment: BP stable. continue Coreg 12.5mg PO BID (4) DM2 (diabetes mellitus, type 2) Status: Chronic Comment: BS controlled. continue Metformin 500mg PO BID (5) History of coronary artery disease Status: Chronic Comment: continue Plavix, Coreg and statin Hospital Course - Lab Results Lab Results: Most Recent Lab Values WBC 9.2 K/uL (4.8-10.8) 07/19/17 05:50 RBC 3.92 Mil/uL (3.80-5.20) 07/19/17 05:50 Hgb 11.1 g/dL (12.0-16.0) L 07/19/17 05:50 Hct 34.2 % (34.0-47.0) 07/19/17 05:50 MCV 87.1 fl (81.0-99.0) 07/19/17 05:50 MCH 28.4 pg (27.0-31.0) 07/19/17 05:50 MCHC 32.6 g/dL (33.0-37.0) L 07/19/17 05:50 RDW 14.2 % (11.5-14.5) 07/19/17 05:50 Plt Count 234 K/uL (130-400) 07/19/17 05:50 MPV 8.7 fl (7.2-11.7) 07/14/17 06:55 Neut % (Auto) 64.9 % (50.0-75.0) 07/14/17 06:55 Lymph % (Auto) 23.7 % (20.0-40.0) 07/14/17 06:55 [place] % (Auto) 7.4 % (0.0-10.0) 07/14/17 06:55 Eos % (Auto) 3.0 % (0.0-4.0) 07/14/17 06:55 Baso % (Auto) 1.0 % (0.0-2.0) 07/14/17 06:55 Neut # (Auto) 5.8 K/uL (1.8-7.0) 07/14/17 06:55 Lymph # (Auto) 2.1 K/uL (1.0-4.3) 07/14/17 06:55 [place] # (Auto) 0.7 K/uL (0.0-0.8) 07/14/17 06:55 Eos # (Auto) 0.3 K/uL (0.0-0.7) 07/14/17 06:55 Baso # (Auto) 0.1 K/uL (0.0-0.2) 07/14/17 06:55 PT 11.6 Seconds (9.8-13.1) 07/14/17 06:55 INR 1.0 (0.9-1.2) 07/14/17 06:55 APTT 31.8 Seconds (25.6-37.1) 07/14/17 06:55 Sodium 141 mmol/l (132-148) 07/19/17 05:50 Potassium 4.6 MMOL/L (3.6-5.0) 07/19/17 05:50 Chloride 97 mmol/L (98-107) L 07/19/17 05:50 Carbon Dioxide 30 mmol/L (22-30) 07/19/17 05:50 Anion Gap 19 (10-20) 07/19/17 05:50 BUN 26 mg/dl (7-17) H 07/19/17 05:50 Creatinine 0.8 mg/dl (0.7-1.2) 07/19/17 05:50 Est GFR ( Amer) > 60 07/19/17 05:50 Est GFR (Non-Af Amer) > 60 07/19/17 05:50 POC Glucose (mg/dL) 88 mg/dL (65-110) 07/21/17 06:01 Random Glucose 93 mg/dL (65-105) 07/19/17 05:50 Calcium 10.1 mg/dL (8.4-10.2) 07/19/17 05:50 Total Bilirubin 0.3 mg/dl (0.2-1.3) 07/19/17 05:50 AST 31 U/L (14-36) 07/19/17 05:50 ALT 37 U/L (9-52) 07/19/17 05:50 Alkaline Phosphatase 67 U/L (38-126) 07/19/17 05:50 Total Protein 7.5 G/DL (6.3-8.2) 07/19/17 05:50 Albumin 3.9 g/dL (3.5-5.0) 07/19/17 05:50 Globulin 3.6 gm/dL (2.2-3.9) 07/19/17 05:50 Albumin/Globulin Ratio 1.1 (1.0-2.1) 07/19/17 05:50 - Hospital Course Hospital Course: 76 yo female with history of CHF, HTN, DM2, CAD and pacemaker and mitral/aortic valve replacement admitted at [facility] on 07/10/2017 after a fall. Imagings were negative for fracture. She was transferred to TCU on 07/13/2017 for therapy because of generalized weakness. She did well and now ready to be discharged home. Discharge Exam - Head Exam Head Exam: ATRAUMATIC - Eye Exam Eye Exam: absent: Scleral icterus - ENT Exam ENT Exam: Mucous Membranes Moist - Respiratory Exam Respiratory Exam: absent: Rales, Rhonchi, Wheezes, Respiratory Distress - Cardiovascular Exam Cardiovascular Exam: REGULAR RHYTHM, +S1, +S2 - GI/Abdominal Exam GI & Abdominal Exam: Soft. absent: Tenderness - Rectal Exam Rectal Exam: Deferred - Neurological Exam Neurological exam: Alert, Oriented x3 - Psychiatric Exam Psychiatric exam: Normal Affect - Skin Skin Exam: Dry, Intact Discharge Plan - Follow Up Plan Condition: GOOD Disposition: HOME/ ROUTINE
== END 2017-07-21 14:25 | disposition home or self-care (01) | DRG 552 ==
LOC: H.TCU 20:49
PROVIDERS: ADMIT Internal Medicine; ATTEND Internal Medicine
PROC: F08Z1FZ Dressing Techniques Treatment using Assistive, Adaptive, Supportive or Protective Equipment (ICD-10-PCS; principal; 2017-07-13)
PROC: F07Z9FZ Gait Training/Functional Ambulation Treatment using Assistive, Adaptive, Supportive or Protective Equipment (ICD-10-PCS; 2017-07-13)
PROC: F07L6FZ Therapeutic Exercise Treatment of Musculoskeletal System - Lower Back / Lower Extremity using Assistive, Adaptive, Supportive or Protective Equipment (ICD-10-PCS; 2017-07-13)
DX: M54.5 Low back pain (principal); E11.42 Type 2 diabetes mellitus with diabetic polyneuropathy; I11.0 Hypertensive heart disease with heart failure; I50.9 Heart failure, unspecified; R26.81 Unsteadiness on feet; Z88.0 Allergy status to penicillin; Z88.6 Allergy status to analgesic agent; Z91.041 Radiographic dye allergy status; Z91.012 Allergy to eggs; Z91.040 Latex allergy status; I25.10 Atherosclerotic heart disease of native coronary artery without angina pectoris; Z95.1 Presence of aortocoronary bypass graft; Z95.0 Presence of cardiac pacemaker; Z95.2 Presence of prosthetic heart valve; E78.5 Hyperlipidemia, unspecified; N30.90 Cystitis, unspecified without hematuria